=== PATIENT | female | born 1975 | race African-American/Black ===

== ENCOUNTER 2018-07-03 01:10 | Emergency (ER) | payer BC ==
[~2018-07-03] VITALS: Ht 165.1 cm; Wt 80.7 kg
[2018-07-03 01:21] VITALS: BP 121/86
[2018-07-03 01:47] LABS: URINE BILIRUBIN NEGATIVE (Negative); URINE BLOOD NEGATIVE (Negative); URINE CLARITY SL CLOUDY; URINE COLOR YELLOW; URINE GLUCOSE-RANDOM* NEGATIVE (Negative); URINE KETONES NEGATIVE (Negative); URINE LEUKOCYTES-REFLEX NEGATIVE (Negative); URINE NITRITE-REFLEX NEGATIVE (Negative); URINE PROTEIN (DIPSTICK) NEGATIVE (Negative); URINE SPECIFIC GRAVITY >= 1.030 (1.005-1.035); URINE UROBILINOGEN 0.2 E.U./dl (0.2-1.0)
[2018-07-03 01:47] LABS: HEMATOCRIT 37.9 % (37.0-47.0); HEMOGLOBIN 12.9 gm/dL (12.0-15.0); MCH 26.7 pg (26.0-34.0); MCHC 34.1 g/dL (28.0-37.0); MCV 78.3 fL (80.0-100.0); RBC 4.84 mil/uL (4.20-5.00); RDW 15.3 % (10.5-14.5); WBC 6.1 thou/uL (4.0-11.0)
[2018-07-03] MEDS ORDERED: NOHOMEMEDICATIONS (01:47)
[2018-07-03 01:53] LABS: CALCIUM 8.8 mg/dL (8.5-10.1); CREATININE 0.8 mg/dL (0.6-1.0); POTASSIUM 3.9 mmol/L (3.5-5.1)
[2018-07-03 02:00] LABS: ALBUMIN 3.8 g/dL (3.4-5.0); TOTAL BILIRUBIN 0.5 mg/dL (<0.1-1.0); TOTAL PROTEIN 7.8 g/dL (6.4-8.2)
[2018-07-03] MEDS ORDERED: NORCO 5-325 TA1 EACH PO (02:10)
== END 2018-07-03 02:09 | disposition home or self-care (01) ==
LOC: ER 01:10
PROVIDERS: Emergency Medicine
DX: M54.5 Low back pain (principal); R10.9 Unspecified abdominal pain; R13.10 Dysphagia, unspecified